=== PATIENT | male | born 1985 | race Caucasian/White ===

== ENCOUNTER 2017-08-15 17:06 | Emergency (ER) | payer OTHER, SELFPAY | END 2017-08-15 20:09 | disposition home or self-care (01) | PROVIDERS: Emergency Provider Emergency Medicine; Visit Provider Emergency Medicine | DX: G50.0 Trigeminal neuralgia (principal); G51.9 Disorder of facial nerve, unspecified; F17.210 Nicotine dependence, cigarettes, uncomplicated | CPT/HCPCS: 70450; 80053; 82550; 82553; 84484; 85025; 93005; 96374; 99284 ==

== ENCOUNTER 2021-08-17 10:19 | Emergency (ER) | payer OTHER, SELFPAY ==
[2021-08-17] VITALS (12 sets, daily range): BP systolic 110–130; BP diastolic 69–90; PULSE 61–69; RESP 16–20; TEMP 36.6–36.8; O2SAT 91–100; BMI 25.8
--- NOTE | 2021-08-17 12:23 | HMH.EDUTC ---
[facility] Disposition Condition on Discharge: Good Time of Disposition: 13:02 Clinical Impression: Wound infection Disposition: Xfer Intermediate Care Fac Instructions: Animal Bites Referrals: Provider,Referral, [Primary Care Provider] - Forms: Transfer Record - ED Medical Decision Making - Marc Inquiry Pt receiving controlled substance: No Marc was queried for this patient: No - Lab Data Result diagrams: 08/17/21 13:16 08/17/21 13:16 Vital Signs: 08/17/21 11:20 08/17/21 11:40 08/17/21 13:16 Temperature 98.3 F 97.9 F Temperature Source Oral Oral Pulse Rate 65 Pulse Rate [Left Brachial] 68 68 Respiratory Rate 18 20 18 Blood Pressure 128/74 Blood Pressure [Left Arm] 117/73 112/73 Blood Pressure Mean Blood Pressure Mean [Left Arm] 87 86 Blood Pressure Source Blood Pressure Source [Left Arm] Automatic Cuff Automatic Cuff Blood Pressure Position Blood Pressure Position [Left Arm] Supine Sitting 02 Sat by Pulse Oximetry 91 L 100 100 Oxygen Delivery Method Room Air Room Air 08/17/21 14:15 08/17/21 15:00 08/17/21 15:37 Temperature Temperature Source Pulse Rate 65 67 64 Pulse Rate [Left Brachial] Respiratory Rate 18 18 18 Blood Pressure 130/75 124/72 119/69 Blood Pressure [Left Arm] Blood Pressure Mean 86 Blood Pressure Mean [Left Arm] Blood Pressure Source Blood Pressure Source [Left Arm] Blood Pressure Position Blood Pressure Position [Left Arm] 02 Sat by Pulse Oximetry 100 100 100 Oxygen Delivery Method 08/17/21 16:00 08/17/21 17:00 08/17/21 17:30 Temperature Temperature Source Pulse Rate 64 61 69 Pulse Rate [Left Brachial] Respiratory Rate 18 18 18 Blood Pressure 122/72 121/77 122/77 Blood Pressure [Left Arm] Blood Pressure Mean 88 92 90 Blood Pressure Mean [Left Arm] Blood Pressure Source Blood Pressure Source [Left Arm] Blood Pressure Position Blood Pressure Position [Left Arm] 02 Sat by Pulse Oximetry 100 99 100 Oxygen Delivery Method 08/17/21 18:00 08/17/21 18:30 08/17/21 20:17 Temperature 98.1 F Temperature Source Oral Pulse Rate 66 62 63 Pulse Rate [Left Brachial] Respiratory Rate 18 18 16 Blood Pressure 120/90 110/74 120/90 Blood Pressure [Left Arm] Blood Pressure Mean 100 87 Blood Pressure Mean [Left Arm] Blood Pressure Source Automatic Cuff Blood Pressure Source [Left Arm] Blood Pressure Position Sitting Blood Pressure Position [Left Arm] 02 Sat by Pulse Oximetry 98 100 Oxygen Delivery Method Room Air - Lab Data Lab Results 08/17/21 13:16: WBC 5.2, RBC 4.51 L, Hgb 13.4 L, Hct 41.1 L, MCV 91.1, MCH 29.8, MCHC 32.7, RDW 12.8, Plt Count 255, MPV 8.6, Neut % (Auto) 69.3, Lymph % (Auto) 20.9, [place] % (Auto) 8.1, Eos % (Auto) 1.0, Baso % (Auto) 0.7, Neut # (Auto) 3.6, Lymph # (Auto) 1.1, [place] # (Auto) 0.4, Eos # (Auto) 0.1, Baso # (Auto) 0.0 08/17/21 13:16: Sodium 138, Potassium 3.8, Chloride 102, Carbon Dioxide 28, Anion Gap 11.8, BUN 9, Creatinine 0.90, Estimated Creat Clear 123, Estimated GFR 95, Est GFR ( Amer) 115, Glucose 90, Calcium 9.2 08/17/21 13:16: Lactate 0.8 08/17/21 16:08: SARS-CoV-2 (PCR) Not detected, Influenza A Untype (PCR) Not detected, Influenza Type B (PCR) Not detected Orders (Tests/Meds): ED MEDICATIONS Discontinued Medications Generic Name Dose Route Start Last Admin Trade Name Freq PRN Reason Stop Dose Admin Acetaminophen 1,000 mg 08/17/21 15:48 08/17/21 15:53 Acetaminophen 500mg Tab PO 08/17/21 15:49 1,000 mg ONCE ONE Administration Ampicillin Sodium/Sulbactam 100 mls @ 200 mls/hr 08/17/21 13:42 08/17/21 14:27 Sodium 3 gm/ Sodium Chloride IV 08/17/21 13:43 200 mls/hr ONCE ONE Administration Vancomycin/PEG/[place]DA/Lysine/Water 1.5 gm in 300 mls @ 150 mls/hr 08/17/21 15:00 08/17/21 18:02 Vancomycin 1.5gm/300ml (Peg) Premix IV 08/17/21 16:59 150 mls/hr ONCE ONE Administration Tetanu
[2021-08-17 14:23] LABS: Lactic Acid 0.8 mmol/L (0.7-2.1)
--- NOTE | 2021-08-17 14:24 | PC.NURSE ---
spoke with Dr Chun he advised we needed ortho , Dr Oconnor speaking with Dr Lazcano
[2021-08-17 14:44] LABS: Basophils % 0.7 % (0.1-2.0); Eosinophils # 0.1 K/mm3 (0.0-0.4); Hematocrit 41.1 % (42.0-52.0); Hemoglobin 13.4 g/dL (14.1-18.0); Lymphocytes # 1.1 K/mm3 (0.7-4.5); Lymphocytes % 20.9 % (10-50); Mean Corpuscular HGB Conc 32.7 g/dL (31.8-35.4); Mean Corpuscular Hemoglobin 29.8 pg (27.0-31.2); Mean Corpuscular Volume 91.1 fl (80-94); Mean Platelet Volume 8.6 fl (7.4-10.4); Monocytes # 0.4 K/mm3 (0.1-1.0); Monocytes % 8.1 % (1.7-9.3); Neutrophils # 3.6 K/mm3 (1.8-7.8); Neutrophils % 69.3 % (37.0-80.0); Platelet Count 255 K/mm3 (142-424); Red Blood Count 4.51 M/mm3 (4.60-6.20); Red Cell Distribution Width 12.8 % (11.5-17.5); White Blood Count 5.2 K/mm3 (4.8-10.8)
--- NOTE | 2021-08-17 14:45 | US_ITS ---
PROCEDURE: US EXTREMITY RT LIMITED CLINICAL INDICATION: swelling, abscess, flexor tendon synovitis COMPARISON: No exams were available for comparison FINDINGS: Ultrasound performed of the area of redness and swelling along the dorsal aspect of the right thumb. There is mild diffuse soft tissue swelling. There is a small collection of heterogeneous echogenicity measuring 9 x 4 by 8 mm within the subcutaneous tissues at the distal aspect of the thumb dorsally which may represent a small developing abscess. Mild amount of subcutaneous fluid is present proximal to this region. No obvious foreign body apparent. IMPRESSION: Soft tissue swelling along the dorsal aspect of the thumb with suspected small subcutaneous abscess along the distal and dorsal aspect of the thumb with some mild diffuse subcutaneous edema. Dictated by: Dipak Marshall MD 08/17/2021 15:46 Dipak Marshall MD in [place] 08/17/2021 15:46
[2021-08-17 15:17] LABS: Anion Gap 11.8 mEq/L (5-15); Blood Urea Nitrogen 9 mg/dl (9-20); Calcium 9.2 mg/dl (8.4-10.2); Carbon Dioxide 28 mmol/L (22.0-30.0); Chloride 102 mmol/L (98-107); Creatinine Clearance Estimated 123 mL/min (50-200); Estimated Glomerular Filt Rate 95 ml/min (>60); GFR (African American) 115 ML/MIN (>60); Glucose 90 mg/dl (74-100); Potassium 3.8 mmoL/L (3.5-5.1); Sodium 138 mmol/L (136-145)
--- NOTE | 2021-08-17 16:06 | US_ITS ---
PROCEDURE INFORMATION: Exam: US Right Non-Vascular Joint or Other Extremity Structure Exam date and time: 08/17/2021 4:06 PM Age: 36 years old Clinical indication: Finger; Patient HX: Swelling to right thumb TECHNIQUE: Imaging protocol: Right US joint or other nonvascular extremity structure or structures. Real-time ultrasound with image documentation. Limited study. Exam focused on the upper extremity in the region of clinical interest. COMPARISON: No relevant prior studies available. FINDINGS: Several grayscale and color images are provided. There is a small focal ill-defined hypoechoic area with no significant vascularity in the region of interest. It measures about 6 x 8 x 3 mm. Differential includes fluid/abscess, hematoma, and granuloma. It appears to abut the tendon. IMPRESSION: Small probable fluid collection or hematoma as above
--- NOTE | 2021-08-17 16:17 | PC.NURSE ---
pt back up to ultrasound
[2021-08-17 16:54] LABS: Coronavirus 19, PCR Not Detected (NotDetected); Influenza A, PCR Not Detected (NotDetected); Influenza B, PCR Not Detected (NotDetected)
--- NOTE | 2021-08-17 17:43 | HMH.EDANIB ---
ED Disposition Clinical Impression: Wound infection Disposition: Xfer Intermediate Care Fac Condition on Discharge: Good Referrals: Provider,Referral, [Primary Care Provider] - - Critical Care Critical Care Time: No Attestation: On 08/17/21, the high probability of a clinically significant, sudden or life threatening deterioration of the following system(s) required my full and direct attention, intervention and personal management. The time I documented below is in addition to time spent performing reported procedures but includes the following listed in this critical care notation. Medical Decision Making - Marc Inquiry Pt receiving controlled substance: No Vital Signs: 08/17/21 11:20 08/17/21 11:40 08/17/21 13:16 Temperature 98.3 F 97.9 F Temperature Source Oral Oral Pulse Rate 65 Pulse Rate [Left Brachial] 68 68 Respiratory Rate 18 20 18 Blood Pressure 128/74 Blood Pressure [Left Arm] 117/73 112/73 Blood Pressure Mean Blood Pressure Mean [Left Arm] 87 86 Blood Pressure Source [Left Arm] Automatic Cuff Automatic Cuff Blood Pressure Position [Left Arm] Supine Sitting 02 Sat by Pulse Oximetry 91 L 100 100 Oxygen Delivery Method Room Air Room Air 08/17/21 14:15 08/17/21 15:00 08/17/21 15:37 Temperature Temperature Source Pulse Rate 65 67 64 Pulse Rate [Left Brachial] Respiratory Rate 18 18 18 Blood Pressure 130/75 124/72 119/69 Blood Pressure [Left Arm] Blood Pressure Mean 86 Blood Pressure Mean [Left Arm] Blood Pressure Source [Left Arm] Blood Pressure Position [Left Arm] 02 Sat by Pulse Oximetry 100 100 100 Oxygen Delivery Method 08/17/21 16:00 08/17/21 17:00 Temperature Temperature Source Pulse Rate 64 61 Pulse Rate [Left Brachial] Respiratory Rate 18 18 Blood Pressure 122/72 121/77 Blood Pressure [Left Arm] Blood Pressure Mean 88 92 Blood Pressure Mean [Left Arm] Blood Pressure Source [Left Arm] Blood Pressure Position [Left Arm] 02 Sat by Pulse Oximetry 100 99 Oxygen Delivery Method - Lab Data Lab Results 08/17/21 13:16: WBC 5.2, RBC 4.51 L, Hgb 13.4 L, Hct 41.1 L, MCV 91.1, MCH 29.8, MCHC 32.7, RDW 12.8, Plt Count 255, MPV 8.6, Neut % (Auto) 69.3, Lymph % (Auto) 20.9, [place] % (Auto) 8.1, Eos % (Auto) 1.0, Baso % (Auto) 0.7, Neut # (Auto) 3.6, Lymph # (Auto) 1.1, [place] # (Auto) 0.4, Eos # (Auto) 0.1, Baso # (Auto) 0.0 08/17/21 13:16: Sodium 138, Potassium 3.8, Chloride 102, Carbon Dioxide 28, Anion Gap 11.8, BUN 9, Creatinine 0.90, Estimated Creat Clear 123, Estimated GFR 95, Est GFR ( Amer) 115, Glucose 90, Calcium 9.2 08/17/21 13:16: Lactate 0.8 08/17/21 16:08: SARS-CoV-2 (PCR) Not detected, Influenza A Untype (PCR) Not detected, Influenza Type B (PCR) Not detected Result diagrams: 08/17/21 13:16 08/17/21 13:16 Orders (Tests/Meds): ED MEDICATIONS Discontinued Medications Generic Name Dose Route Start Last Admin Trade Name Wilberq PRN Reason Stop Dose Admin Acetaminophen 1,000 mg 08/17/21 15:48 08/17/21 15:53 Acetaminophen 500mg Tab PO 08/17/21 15:49 1,000 mg ONCE ONE Administration Ampicillin Sodium/Sulbactam 100 mls @ 200 mls/hr 08/17/21 13:42 08/17/21 14:27 Sodium 3 gm/ Sodium Chloride IV 08/17/21 13:43 200 mls/hr ONCE ONE Administration Vancomycin/PEG/NADA/Lysine/Water 1.5 gm in 300 mls @ 150 mls/hr 08/17/21 15:00 Vancomycin 1.5gm/300ml (Peg) Premix IV 08/17/21 16:59 ONCE ONE Vancomycin HCl 2,000 mg 08/17/21 14:41 Vancomycin 1000mg Vial IV 08/17/21 14:42 ONCE STA ORDERS Category Date Time Status Blood Culture Stat Micro 08/17/21 13:16 Received Medical Decision Narrative: Patient received from urgent care. Patient has exam findings concerning for flexor tenosynovitis in the context of a high risk animal bite. Patient has fusiform swelling, pain with passive movement. Ultrasound performed demonstrated multiple small abscesses,
--- NOTE | 2021-08-17 19:24 | PC.NURSE ---
Spoke with keyana at ER
== END 2021-08-17 20:21 ==
LOC: UTC 13:03 → ER 13:05
PROVIDERS: Emergency Provider Internal Medicine Critical Care Medicine
DX: S61.031A Puncture wound without foreign body of right thumb without damage to nail, initial encounter (principal); L03.011 Cellulitis of right finger; W55.01XA Bitten by cat, initial encounter; Y92.89 Other specified places as the place of occurrence of the external cause; Z23 Encounter for immunization; Z20.822 Contact with and (suspected) exposure to COVID-19
CPT/HCPCS: 76882; 80048; 83605; 85025; 87040; 90471; 90715; 96365; 96375; 99284; C9803; U0003; U0005

== ENCOUNTER 2022-07-13 19:31 | Emergency (ER) | payer SELFPAY ==
[2022-07-13 19:32] VITALS: BP 130/84; PULSE 65; RESP 22; TEMP 36.9; O2SAT 96; BMI 26.6
[2022-07-13 19:37] VITALS: BMI 26.6
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
[2022-07-13 19:45] LABS: Basophils # 0.1 K/mm3 (0-0.2); Basophils % 1.2 % (0.1-2.0); Eosinophils # 0.2 K/mm3 (0.0-0.4); Eosinophils % 1.6 % (0.1-12.0); Hematocrit 46.2 % (42.0-52.0); Hemoglobin 15.4 g/dL (14.1-18.0); Lymphocytes % 30.3 % (10-50); Mean Corpuscular HGB Conc 33.4 g/dL (31.8-35.4); Mean Corpuscular Hemoglobin 30.2 pg (27.0-31.2); Mean Corpuscular Volume 90.3 fl (80-94); Mean Platelet Volume 7.3 fl (7.4-10.4); Monocytes # 0.7 K/mm3 (0.1-1.0); Monocytes % 7.4 % (1.7-9.3); Neutrophils # 5.9 K/mm3 (1.8-7.8); Neutrophils % 59.5 % (37.0-80.0); Platelet Count 322 K/mm3 (142-424); Red Blood Count 5.12 M/mm3 (4.60-6.20); Red Cell Distribution Width 12.8 % (11.5-17.5); White Blood Count 9.9 K/mm3 (4.8-10.8)
[2022-07-13 19:47] LABS: Chloride 102 mmol/L (98-107); Potassium 3.7 mmoL/L (3.5-5.1); Sodium 141 mmol/L (136-145)
[2022-07-13 19:49] LABS: Blood Urea Nitrogen 10 mg/dl (9-20); Creatinine Clearance Estimated 84 mL/min (50-200); Estimated Glomerular Filt Rate 62 ml/min (>60); GFR (African American) 75 ML/MIN (>60)
[2022-07-13 19:50] LABS: Alanine Aminotransferase 30 U/L (12-78); Albumin Level 4.8 g/dl (3.5-5.0); Albumin/Globulin Ratio 1.5 (1.1-1.8); Alkaline Phosphatase 73 U/L (38-126); Anion Gap 14.7 mEq/L (5-15); Aspartate Amino Transferase 33 U/L (17-59); Bilirubin,Total 0.4 mg/dl (0.2-1.3); Calcium 9.2 mg/dl (8.4-10.2); Carbon Dioxide 28 mmol/L (22.0-30.0); Globulin 3.1 g/dL (1.3-3.2); Glucose 68 mg/dl (74-100); Total Protein,Serum 7.9 g/dl (6.3-8.2)
--- NOTE | 2022-07-13 20:05 | PC.NURSE ---
Dr[facility] Pickard [facility]
--- NOTE | 2022-07-13 20:11 | PC.NURSE ---
pt has be accepted to [facility] but Dr. Marsh
--- NOTE | 2022-07-13 20:11 | PC.NURSE ---
Radiology had power-shared the images and disc collected for pt transfer
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
[2022-07-13 20:20] VITALS: BMI 26.6
--- NOTE | 2022-07-13 20:29 | PC.NURSE ---
Called report to Osorio GALEANO @ [facility] Abelino Fabian notified for pt transport.
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
[2022-07-13 21:10] VITALS: BP 120/79; PULSE 79; RESP 18; TEMP 37.2; O2SAT 98
== END 2022-07-13 21:12 | disposition short-term general hospital (02) ==
PROVIDERS: Emergency Provider Emergency Medicine
DX: S61.432A Puncture wound without foreign body of left hand, initial encounter (principal); S61.532A Puncture wound without foreign body of left wrist, initial encounter; R20.2 Paresthesia of skin; F17.200 Nicotine dependence, unspecified, uncomplicated; W32.0XXA Accidental handgun discharge, initial encounter; Y93.89 Activity, other specified
CPT/HCPCS: 73110; 73130; 80053; 85025; 96374; 96375; 99283; 99284

== ENCOUNTER → 2022-12-12 08:46 | Outpatient (POV) | payer SELFPAY | PROVIDERS: Visit Provider Dermatology | DX: Z00.00 Encounter for general adult medical examination without abnormal findings (principal) ==